=== PATIENT | female | born 1955 | race Caucasian/White ===

== ENCOUNTER 2017-06-17 20:56 | Emergency (ER) | payer BC ==
[~2017-06-17] VITALS: Ht 165.1 cm; Wt 61.2 kg
--- NOTE | ~2017-06-17 | CT2 ---
[facility] A Service of [facility] RADIOLOGY TEXT RESULTS PATIENT: DAYLIN KELLEY LOCATION: [facility] : 51 UNIT #: [id number] AGE: [address]: Jamaal Smith MD SEX: F ORDER DR: [id number] [facility] [address] [place], [place] [address] [id number] MR#: [id number] Acc #: [id number] NAME: DAYLIN KELLEY : 1955 SEX: F STUDY DATE/TIME: 06/18/2017 01:23 UNIT: [facility] ROOM: STUDY DESCRIPTION: CT Abd and Pelv W Cont Attending Physician: Jamaal Smith M.D. Ordering Physician: Jamaal Smith M.D. Primary Care Physician: Primary Care Physician No MEDICAL IMAGING REPORT This report is preliminary unless electronic signature is present EXAM CT abdomen and pelvis, 06/18 at 01:23 INDICATIONS Generalized abdominal pain for 3 days with nausea, vomiting and diarrhea for 2 days. TECHNIQUE Axial images were obtained through the abdomen and pelvis following oral and IV contrast administration. Multiplanar reformats were obtained. This CT exam was performed with one or more of the following radiation dose reduction techniques: automatic exposure control, adjustment of mA and/or kV according to patient size, and iterative reconstruction. COMPARISON 09/17/2016 FINDINGS ABDOMEN: Postsurgical change noted in the right lower lobe. Patient is status post augmentation mammoplasty. Gallbladder surgically absent. No biliary obstruction. Small hepatic cysts are unchanged. Patient has a duplex left kidney. The kidneys are nonobstructed. Both enhance normally. The solid organs are otherwise unremarkable. No free fluid or adenopathy. The GI tract is normal. PELVIS: Urinary bladder is normal. Uterus is surgically absent. There is a sigmoid anastomosis. GI tract is otherwise normal. The appendix is not clearly seen, but there is no evidence of acute appendicitis. IMPRESSION 1. No acute findings in the abdomen or pelvis. 2. The appendix is not clearly seen but [facility] of [facility] RADIOLOGY TEXT RESULTS PATIENT: DAYLIN KELLEY LOCATION: [facility] : 51 UNIT #: [id number] AGE: [address]: Jamaal Smith MD SEX: F ORDER DR: appendicitis. The GI tract is normal except for a sigmoid anastomosis. 3. Duplex left kidney. The kidneys are otherwise normal and nonobstructed. 4. Cholecystectomy and hysterectomy. Dictated by... Jamaal Brooks Jr., M.D. THIS IS AN ELECTRONICALLY VERIFIED REPORT Jamaal Brooks Jr., M.D. at 06/21/2017 7:13 AM Barber TD: 06/18/2017 09:45 JOB #: [id number] MEDICAL IMAGING REPORT Page 1 of 1 COPY
[~2017-06-17 20:56] MED LIST: ALBUTEROL17 GM INH; CALCIUM + D 6001 TA1 PO; CALCIUM + VITAM1 TAB PO; CENESTIN0.625 MG PO; ESTRACE1 M1 PO; ESTRADIOL1 MG PO; FLAGYL PO; LEVAQUIN PO; LORTAB 5/500 TA1 TA1 PO; PERCOCET5/325 PO; TOPAMAX25 MG PO; TOPAMAX50 MG PO; VOLTAREN50 MG PO
[2017-06-18 00:08] LABS: BASOPHIL% 0.4 % (0-2.5); EOSINOPHIL% 0.3 % (0.0-7.0); HEMATOCRIT 42.2 % (35.0-45.0); HEMOGLOBIN 14.1 gm/dL (12.0-16.0); LYMPHOCYTE# 0.9 X10e3 (1.0-3.5); LYMPHOCYTE% 10.1 % (17.0-45.0); MEAN CELL VOLUME 90.1 FL (83-96); MEAN CORPUSCULAR HGB CONC 33.3 g/dL (30-36); MEAN PLATELET VOLUME 8.2 FL (6.5-11.5); MONOCYTE# 0.4 X10e3 (0-1.0); NEUTROPHIL# 7.4 X10e3 (1.5-7.1); NEUTROPHIL% 84.2 % (40-75); PLATELET COUNT 266 X10e3 (140-420); RED BLOOD COUNT 4.68 X10e (3.90-5.30); RED CELL DISTRIBUTION WIDTH 13.9 % (11.0-15.5); WHITE BLOOD COUNT 8.8 X10e3 (4.0-10.5)
[2017-06-18 00:09] LABS: DIFF IND NO
[2017-06-18 01:03] LABS: ALBUMIN SERUM 3.7 g/dL (3.5-5.0); BILIRUBIN, DIRECT 0.1 mg/dL (0.0-0.2); BILIRUBIN,INDIRECT 0.5 mg/dL (0.0-0.9); BILIRUBIN,TOTAL 0.6 mg/dL (0.2-2.0); BUN/CREATININE RATIO 21.11; CALCIUM SERUM 8.5 mg/dL (8.4-10.2); CREATININE SERUM 0.9 mg/dL (0.6-1.4); GLOM FILT RATE Estimated 68.1 mL/min (>60); POTASSIUM 4.1 mmol/L (3.5-5.1); PROTEIN TOTAL SERUM 7.3 g/dL (6.0-8.3)
== END 2017-06-18 02:08 | disposition home or self-care (01) ==
LOC: CED 20:56
PROVIDERS: Emergency Medicine
DX: R10.9 Unspecified abdominal pain (principal); R11.10 Vomiting, unspecified; R19.7 Diarrhea, unspecified; Z90.49 Acquired absence of other specified parts of digestive tract; Z90.710 Acquired absence of both cervix and uterus; Z88.5 Allergy status to narcotic agent
CPT/HCPCS: 36415; 74177; 80048; 80076; 82150; 83690; 85025; 96361; 96374; 96375; 99284; J2270; J2550; Q9967